=== PATIENT | female | born 1990 | race Caucasian/White ===

== ENCOUNTER 2023-04-05 15:14 | Outpatient (CLI) | payer BC, SELFPAY ==
[2023-04-05 16:10] LABS: Influenza A QL RT-PCR Negative (Negative); Influenza B QL RT-PCR Negative (Negative); RSV RNA, RT-PCR Negative (Negative); SARS-CoV-2 RNA PCR Negative (Negative)
== END 2023-04-05 15:15 | disposition home or self-care (01) ==
LOC: ANHLAB 15:16
PROVIDERS: PCP Family Medicine; Visit Provider Family Medicine
DX: N39.0 Urinary tract infection, site not specified (principal)
CPT/HCPCS: 87637

== ENCOUNTER 2023-05-13 11:30 | Outpatient (CLI) | payer BC, SELFPAY ==
--- NOTE | 2023-05-13 11:40 | ECG_ITS ---
Measurements Intervals [place] Rate: 89 P: 54 MS: 188 QRS: 33 QRSD: 93 T: 52 QT: 371 QTc: 453 Interpretive Statements SINUS RHYTHM NO PREVIOUS ECG AVAILABLE FOR COMPARISON Electronically Signed On 05-13-2023 14:32:14 CDT by Steve Haley M.D.
== END 2023-05-13 11:31 | disposition home or self-care (01) ==
LOC: ANHCARD 11:32
PROVIDERS: PCP Family Medicine; Visit Provider Physician Assistant
DX: E11.9 Type 2 diabetes mellitus without complications (principal); E03.9 Hypothyroidism, unspecified
CPT/HCPCS: 93005

== ENCOUNTER 2024-04-28 13:30 | Emergency (ER) | payer BC, SELFPAY ==
[2024-04-28 13:57] VITALS: BP 137/84; PULSE 96; RESP 16; TEMP 37.7; O2SAT 98
[2024-04-28 13:58] VITALS: BP 137/84; PULSE 96; RESP 16; TEMP 37.7; O2SAT 98
--- NOTE | 2024-04-28 14:00 | ED.URI ---
HPI - URI/Sore Throat General Chief Complaint: Upper Respiratory Infection Stated Complaint: Sore Throat Time Seen by Provider: 04/28/24 14:00 Source: patient, RN notes reviewed and old records reviewed Mode of arrival: ambulatory Limitations: no limitations History of Present Illness HPI Narrative: 33-year-old female presents to the [facility] with complaints of a sore throat. Patient reports on Tuesday or Tuesday started with some allergy symptoms. Yesterday started with a sore throat, laryngitis Related Data Home Medications Medication Instructions Recorded Confirmed omega-3 fatty acids 1,000 mg 1,000 mg PO DAILY 07/28/20 04/28/24 capsule (Fish Oil Concentrate) vitamin B complex (B 1 tablet PO DAILY 07/28/20 04/28/24 Complex-Vitamin B12 tablet) cetirizine 10 mg tablet (Zyrtec) 10 mg PO DAILY 12/29/22 04/28/24 fluticasone propionate 50 1 spray intranasal DAILY 12/29/22 04/28/24 mcg/actuation nasal spray,suspension (Flonase Allergy Relief) Allergies Allergy/AdvReac Type Severity Reaction Status Date / Time lactose intolerant Allergy Mild Stomach Uncoded 04/28/24 13:57 pain Review of Systems Review of Systems: All systems reviewed & are unremarkable except as noted in HPI and below Constitutional: Constitutional: Reports no additional constitutional complaints Eyes: Eyes: Reports no additional eye complaints ENT: Reports as per HPI and Reports sore throat Cardiovascular: Cardiovascular: Reports no additional cardiovascular complaints, Denies chest pain and Denies dyspnea Respiratory: Respiratory: Reports no additional respiratory complaints, Denies chest congestion, Denies cough and Denies dyspnea Gastrointestinal: Gastrointestinal: Reports no additional gastrointestinal complaints, Denies abdominal pain, Denies nausea and Denies vomiting Musculoskeletal: Musculoskeletal: Reports no additional musculoskeletal complaints Integumentary/Breasts: Skin/Breast: Reports system reviewed and no additional complaints, except as docu Neurologic: Reports system reviewed and no additional complaints, except as documented Psychiatric: Psychiatric: Reports no additional psychiatric complaints Allergic/Immunologic: Allergic/Immunologic: Reports no additional allergic/immunologic complaints PMFSH Past Medical History Medical History Anemia Depression Diabetes HLD (hyperlipidemia) Hypothyroidism PCOS (polycystic ovarian syndrome) Varicella Surgical History Surgical History [place] teeth removed (~2008) Family History Family History Other Asthma Cerebrovascular accident Diabetes mellitus Social History Social History Smoking status: Never smoker Second hand tobacco smoke exposure: No Alcohol intake: current Substance use: never Substance use type: does not use Lack of Transportation: No Lack of Food: Never True Current Housing: I Have Housing Concerned About Future Housing: No Difficulty Paying Gas/Electric Bills: No Difficulty Paying for Meds: No Currently Unemployed: No Difficulty w/ Childcare or Family Care: No Living arrangements: with family Spiritual care concerns: No Agree to blood products: Yes Comments At the time of my signature, I reviewed and agree with the nursing past medical, surgical, social, and family history. There is no relevant family history pertinent to the patient complaint. Exam Const: General: cooperative, healthy appearing, comfortable, no acute distress, well developed, alert and well nourished Nutritional Appearance: well nourished Orientation/consciousness: patient oriented x3 Limitations: no limitations HENMT: Head: normal to inspection Ears: hearing grossly normal bilaterally, external ears norm
[2024-04-28 14:25] LABS: EDCOVIDSCREEN Negative (Negative); EDINFLUASCREEN Negative (Negative); EDINFLUBSCREEN Negative (Negative); EDSTREPNEGPOS1 Negative (Negative)
== END 2024-04-28 14:31 | disposition home or self-care (01) ==
PROVIDERS: Emergency Provider Nurse Practitioner; PCP Family Medicine
DX: J04.0 Acute laryngitis (principal); R09.82 Postnasal drip; J02.9 Acute pharyngitis, unspecified; Z20.822 Contact with and (suspected) exposure to COVID-19; E11.9 Type 2 diabetes mellitus without complications; E78.5 Hyperlipidemia, unspecified; E03.9 Hypothyroidism, unspecified; E28.2 Polycystic ovarian syndrome
CPT/HCPCS: 87081; 87426; 87804; 87880; 99213; G0463

== ENCOUNTER 2024-05-23 12:33 | Emergency (ER) | payer BC, SELFPAY ==
[2024-05-23 12:41] VITALS: BP 126/75; PULSE 104; RESP 20; TEMP 37.1; O2SAT 100
--- NOTE | 2024-05-23 12:41 | ED.URI ---
HPI - URI/Sore Throat General Chief Complaint: Upper Respiratory Infection Stated Complaint: Nausea/Sore Throat Time Seen by Provider: 05/23/24 12:41 Source: patient, RN notes reviewed and old records reviewed Mode of arrival: ambulatory Limitations: no limitations History of Present Illness HPI Narrative: Patient presents with complaints of sore throat and nausea. Symptoms have been present for 2 days. She denies any fever, chills, sweats. No drooling or stridor noted. She does report some postnasal drainage. She is in no distress at this time. She has been taking Tylenol intermittently with good results Related Data Home Medications Medication Instructions Recorded Confirmed omega-3 fatty acids 1,000 mg 1,000 mg PO DAILY 07/28/20 05/23/24 capsule (Fish Oil Concentrate) cetirizine 10 mg tablet (Zyrtec) 10 mg PO DAILY 12/29/22 05/23/24 fluticasone propionate 50 1 spray intranasal DAILY 12/29/22 05/23/24 mcg/actuation nasal spray,suspension (Flonase Allergy Relief) Allergies Allergy/AdvReac Type Severity Reaction Status Date / Time lactose intolerant Allergy Mild Stomach Uncoded 05/23/24 12:35 pain Review of Systems Review of Systems: All systems reviewed & are unremarkable except as noted in HPI and below Constitutional: Constitutional: Reports as per HPI, Reports no additional constitutional complaints and Denies fever(s) ENT: Reports system reviewed and no additional complaints, except as documented, Reports as per HPI, Reports nasal discharge and Reports sore throat Cardiovascular: Cardiovascular: Reports no additional cardiovascular complaints Respiratory: Respiratory: Reports no additional respiratory complaints Gastrointestinal: Gastrointestinal: Reports no additional gastrointestinal complaints, Reports nausea and Denies vomiting [facility] Past Medical History Medical History Anemia Depression Diabetes HLD (hyperlipidemia) Hypothyroidism PCOS (polycystic ovarian syndrome) Varicella Surgical History Surgical History [place] teeth removed (~2008) Family History Family History Other Asthma Cerebrovascular accident Diabetes mellitus Social History Social History Smoking status: Never smoker Second hand tobacco smoke exposure: No Alcohol intake: current Substance use: never Substance use type: does not use Lack of Transportation: No Lack of Food: Never True Current Housing: I Have Housing Concerned About Future Housing: No Difficulty Paying Gas/Electric Bills: No Difficulty Paying for Meds: No Currently Unemployed: No Difficulty w/ Childcare or Family Care: No Living arrangements: with family Spiritual care concerns: No Agree to blood products: Yes Comments At the time of my signature, I reviewed and agree with the nursing past medical, surgical, social, and family history. There is no relevant family history pertinent to the patient complaint. Exam Const: General: cooperative, no acute distress, alert and awake Orientation/consciousness: oriented to person, oriented to place and oriented to time HENMT: Head: normal to inspection Ears: TM's normal bilaterally Mouth: Yes moist mucous membranes Throat: posterior oropharynx abnormal erythema and postnasal drainage Resp: Effort & Inspection: normal respiratory effort and able to speak in complete sentences Auscultation: clear to auscultation bilaterally, no crackles, no rales, no rhonchi and no wheezes Cardio: Palpation: normal PMI Rate: regular rate Rhythm: regular rhythm Heart sounds: S1 normal heart sound present and S2 normal heart sound present Neuro: General: oriented to person, oriented to place and oriented to time Cranial nerves: Yes CN's II-XII intact bilat
[2024-05-23 12:58] LABS: EDSTREPNEGPOS1 Negative (Negative)
== END 2024-05-23 13:05 | disposition home or self-care (01) ==
PROVIDERS: Emergency Provider Nurse Practitioner Family; PCP Family Medicine
DX: J06.9 Acute upper respiratory infection, unspecified (principal); E11.9 Type 2 diabetes mellitus without complications; E78.5 Hyperlipidemia, unspecified; E03.9 Hypothyroidism, unspecified; E28.2 Polycystic ovarian syndrome
CPT/HCPCS: 87081; 87880; 99213; G0463

== ENCOUNTER 2025-06-03 08:54 | Outpatient (CLI) | payer BC, SELFPAY ==
--- NOTE | ~2025-06-03 | US_ITS ---
ULTRASOUND ABDOMEN LIMITED (RIGHT UPPER QUADRANT) Clinical History: R74.01 - Elevation of levels of liver transaminase levels Comparison: None Technique: Right upper quadrant sonography Findings: Liver: Enlarged. Echogenic. No intrahepatic biliary ductal dilatation. Normal hepatopedal flow main portal vein. Common Duct: Normal caliber. 4 mm. Gallbladder: No stones. No wall thickening. No pericholecystic fluid. Pancreas: Visualized portions unremarkable. IMPRESSION: 1. No acute findings. 2. Hepatomegaly, with steatosis and/or hepatocellular disease. Reviewed, dictated and finalized at location R.
== END 2025-06-03 08:55 | disposition home or self-care (01) ==
LOC: MICIMG 08:55
PROVIDERS: PCP Student in an Organized Health Care Education/Training Program; Visit Provider Family Medicine
DX: R74.01 Elevation of levels of liver transaminase levels (principal); R16.0 Hepatomegaly, not elsewhere classified
CPT/HCPCS: 76705

== ENCOUNTER 2025-06-27 14:56 | Outpatient (CLI) | payer BC, SELFPAY ==
--- NOTE | 2025-06-27 15:09 | ECHO_ITS ---
Patient Info Name: Hanh De Jesus Age: 34 years : 1990 Gender: Female Ht: 68 in Wt: 245 lbs BSA: 2.36 m2 HR: 81 bpm BP: 133 / 90 mmHg Technical Quality: Good Exam Date: 06/27/2025 3:12 PM Patient Status: O Admit Date: 06/27/2025 Exam Type: CA echo dop color flow Complete two-dimensional, color flow and Doppler transthoracic echocardiogram is performed. Ekg Monitor: Shar Holguin III Attending Provider: Susan Bueno Summary 1. Complete two-dimensional, color flow and Doppler transthoracic echocardiogram is performed. 2. Left ventricular chamber dimension is normal. 3. Left ventricular systolic function is normal, estimated at 60-65. 4. The left ventricular diastolic function is normal. 5. E/e' 7 is not elevated. 6. There is trace tricuspid valve regurgitation. 7. No pulmonary hypertension, estimated pulmonary arterial systolic pressure is 21 mmHg. Left Ventricle E/e' 7 is not elevated. Left ventricular chamber dimension is normal. Left ventricular systolic function is normal, estimated at 60-65. The left ventricular diastolic function is normal. Right Ventricle Right ventricular chamber dimension is normal. Right ventricular systolic function is normal. Left Atria Left atrial chamber dimension is normal. Right Atria Right atrial chamber dimension is normal. Aortic Valve The aortic valve is probable trileaflet. There is no aortic valve stenosis. There is trace aortic valve regurgitation. Pulmonic Valve There is no pulmonic regurgitation. Mitral Valve There is no mitral valve stenosis. There is no mitral valve regurgitation. Tricuspid Valve There is trace tricuspid valve regurgitation. No pulmonary hypertension, estimated pulmonary arterial systolic pressure is 21 mmHg. Pericardium/Pleural There is no pericardial effusion. Inferior Vena Cava Normal inferior vena cava with >50% collapse upon inspiration consistent with normal right atrial pressure, 5 mmHg. Aorta The aortic root size at the sinus of Valsalva is normal. Left Ventricular Outflow Tract Name Value Normal LVOT 2D LVOT Diameter 2.3 cm LVOT Doppler LVOT Peak Velocity 138 cm/s LVOT Peak Gradient 8 mmHg LVOT Mean Gradient 4 mmHg LVOT VTI 24 cm LVOT VTI/AV VTI Ratio 0.8 LVOT Stroke Volume 96 ml LVOT CO 8.8 l/min LVOT CI 3.7 l/min/m2 Pulmonic Valve Name Value Normal PV Doppler PV Peak Velocity 124 cm/s PV Peak Gradient 6 mmHg PV Mean Gradient 4 mmHg Mitral Valve Name Value Normal MV Doppler MV Peak Gradient 4 mmHg MV Mean Gradient 2 mmHg MV Area (Cont Eq VTI) 4.4 cm2 MV Diastolic Function MV E Peak Velocity 103 cm/s MV A Peak Velocity 64 cm/s MV E/A 1.6 MV Decel Time (PW) 212 ms MV Annular TDI MV E/e' (Septal) 8.2 MV E/e' (Lateral) 7.0 MV E/e' (Average) 7.6 Tricuspid Valve Name Value Normal TV Regurgitation Doppler TR Peak Velocity 200 cm/s TR Peak Gradient 16 mmHg Estimated PAP/RSVP RA Pressure 5 mmHg <=5 PA Systolic Pressure 21 mmHg <36 RV Systolic Pressure 21 mmHg <36 TV Annular TDI TV Lateral Millie s' Velocity 12.8 cm/s >=9.5 Aortic Valve Name Value Normal AV Doppler AV Peak Velocity 164 cm/s AV Peak Gradient 11 mmHg AV Mean Gradient 6 mmHg AV VTI 29 cm AV Area (Cont Eq VTI) 3.3 cm2 >=3.0 AV Area (Cont Eq Abner) 3.4 cm2 AV DI (Abner) 0.84 AV Regurgitation 2D LVOT Area 4.0 cm2 Ventricles Name Value Normal LV Dimensions 2D/MM IVS Diastolic Thickness (2D) 0.8 cm 0.6-1.0 LVID Diastole (2D) 4.7 cm 3.8-5.2 LVIW Diastolic Thickness (2D) 0.9 cm 0.6-0.9 LVID Systole (2D) 3.2 cm 2.2-3.5 LVOT Diameter 2.3 cm LV Mass (2D Cubed) 128.63 g 67.00-162.00 LV Mass Index (2D Cubed) 55 g/m2 43-95 Relative Wall Thickness (2D) 0.36 <=0.42 LV Fractional Shortening/Ejection Fraction 2D/MM LV Fractional Shortening (2D) 33 % 27-45 LV EF (2D Teichholz) 61 % LV Diastolic Volume (4C MOD) 82 ml LV EF (4C MOD) 63 % LV Diastolic Volume (2C MOD) 85 ml LV EF (2C MOD) 62 % LV Diastolic Volume (BP MOD) 86 ml 46-106 LV Diastolic Volume Index (BP MOD) 37 ml/m2 29-61 LV Systolic Volume (BP MOD) 34 ml 14-42 LV Systolic Volume Index (BP MOD) 14 ml/m2 8-24 LV EF (BP MOD) 61 % 54-74 LV Diastolic Length (4C) 8.4 cm LV Systolic Length (4C) 6.3 cm LV Stroke Volume (4C MOD) 52 ml Atria Name Value Normal LA Dimensions LA Volume (4C A-L) 45 ml LA Volume (BP A-L) 47 ml RA Dimensions RA Systolic Major [place] Length (4C) 4.9 cm 2.2-2.8 RA Area (4C) 17.6 cm2 <=18.0 Report Signatures
--- OUTSIDE RECORDS SUMMARY | 2025-06-27 17:49 | XMS_ITS | Data Portability ---
Author Organization [facility], [place] Address [address] [place] [address] Care Team Providers Care Supervising Chef Name Role Phone SANJUANITA OLIVEROS Primary Care Provider [phone] Assessment Encounter Date Assessment Date Assessment LastModified by Organization Details LastModified Time 03/10/2020 03/10/2020 Annual gynecological exam performed. Patient will come back in a year unless there are new symptoms. [email or web address] Not available 03/10/2020 16:10:38 03/12/2021 03/12/2021 Annual gynecological exam performed. Patient will come back in a year unless there are new symptoms. Not available 03/12/2021 11:30:23 Plan of Treatment Reminders Order Date Submit Date Provider Last Modified By Organization Details Last Modified Time Details Appointments None recorded. Lab None recorded. Referral neurologist referral - Please call the patient to schedule an appt. If you have any questions, please call Sanjuanita at [phone]. Thank you. 2020 021 [email or web address] Neurology Dept [facility] (New Referrals), [address], [place], [address], 09:58:39 infertility reproductiv e endocrinolo gy referral 2019 020 JEAN Joshi, [address] [address], [place], [address], 05:04:05 Procedures None recorded. Surgeries None recorded. Imaging None recorded. Medication Orders None recorded. Patient TargetsNo targets recorded. Patient Instructions Encounter Date Encounter Id Patient Instructions Last Modified By Organization Details Last Modified Time 03/10/2020 [id number] [email or web address] Not available 17:02:01 Reason for Referral Infertility Reproductive End ocrinology Referral for Irregular periods Irregular periods/infertility work up Referring Physician: Veronique Chaudhari NUMERICAL ANALYSIS GROUP MANAGER, Encounter Date: 03/10/2020 Neurologist Referral for Ronaldo neri with aura Please call the patient to schedule an appt. If you have any questions, please call Sanjuanita at [phone]. Thank you. Referring Physician: Veronique Chaudhari NUMERICAL ANALYSIS GROUP MANAGER, Encounter Date: 03/12/2021 Results Created Date Observation Date Name Description Value Unit Range Abnormal Flag Note LastModifiedBy Organization Detail LastModifiedTime 03/10/20 20 03/12/2020 pap, LB Pap test thin prep Negati ve for Intrae pithel ial Lesion or Malign marcelina normal ACCES ELADIA #: [id number] Sourc e: Cervi mark/E ndoce rvica l LMP: 2019 Date Taken : 03/10 Speci men Type: ThinP rep Vial Date Repor dagoberto: Clini mrak Data: Cytot ech: Katarina Ko , CT( CP) Date Repor dagoberto: Speci men Adequ acy: Satis facto ry for evalu ation Endoc ervic al/tr ansfo rmati on zone compo nent prese nt Gener al Categ oriza tion: NEGAT ANKIT FOR INTRA EPITH ELIAL LESIO N OR MALIG HARIS This speci men has been candido zed by the ThinP rep Imagi ng Syste m, an inter activ e compu ter syste m which bethany ts the lab in the [facility] joni of ThinP rep Pap Test slide s. Follo wing imagi ng, the slide was revie wed by a Cytot echno logis t and/o r Patho logis t. D N A A S S A Y S R E P O R T TEST NAME RESUL TS ----- ---- ----- -- HPV High Risk Scree n (TMA) ThinP rep Vial The human papil lomav irus (HPV) High Risk Scree n is an FDA-a pprov ed in-vi tro ampli fied nucle ic acid test for the quali tativ e detec tion of E6/E7 viral mRNA. Resul ts shoul d be corre lated with patie nt prese ntati on, histo ry, cervi mark cytol ogy and other clini mark and labor atory findi ngs. See https ://GoodClic/s ites/ defau lt/fi les 018-0 AW- 62358 _002_ 01.pd f for furth er infor matio n. Test perfo rmed by [facility], d/b/[facility], [address], [place] [address] , Hortensia Colvin ra, , Labor atory Direc tor. HPV High Risk *HPV NOT DETEC DAGOBERTO (TYPE S 16, 18, 31, 33, 35, 39, 45, 51, 52, 56, 58, 59, 66, 68) *HPV: The human papil lomav irus (HPV) High Risk Scree n is an FDA-a pprov ed in-vi tro ampli fied nucle ic acid test for the quali tativ e detec tion of E6/E7 viral mRNA. Resul ts shoul d be corre lated with patie nt prese ntati on, histo ry, cervi mark cytol ogy and other clini mark and labor atory findi ngs. See https ://GoodClic/s ites/ defau lt/fi -0 - 80449 _002_ 01.pd f for furth er infor matio n. Test perfo rmed by [facility], d/b/a [facility], [address], [place] [address] , Hortensia Colvin ra, , Labor atory Direc tor. End of Repor t Techn ical servi sonam provi ded by [facility], d/b/a [facility], [address] [place] [address] Michael Wiseman MD, [facility]. Case revie wed and diagn osis rende red at [facility] iated Patho logis [facility], d/b/a [facility], [address] [place] [address] Michael Wiseman MD, [facility]. CONFI DENTI AL Not Available [facility] ([facility]) [address], [place], [address], 03/12/2020 14:35:27 03/10/20 20 03/11/2020 HPV DNA, high- risk HPV high risk NOT DETECT ED normal Not Available [facility] ([facility]) [address], [place], [address], 03/12/2020 14:35:27 Result Notes None recorded. Problems Name Problem SNOMED Code Status Onset Date Resolution Date Notes Provider Name and Address Organization Details Recorded Time Dysfuncti onal uterine bleeding Active 2012 Other disorders of menstruati on and other abnormal bleeding from female genital tract;Sharan rded Elsewhere: No Locatio n: [facility] rce: EHR Chroni c: N Practice ID: 0001 Billa ble Time: 08:30:00 AM Not Available [facility] 0 18:38:32 Specializ ed medical examinati on Active 2012 Gynecologi mark Examinatio n;Recorded Elsewhere: No Locatio n: [facility] Anastasia rce: EHR Chroni c: N Practice ID: 0001 Billa ble Time: 05:00:00 PM Not Available [facility] 0 18:38:31 Education Active 2012 Other general counseling and advice on contracept ankit management ;Recorded Elsewhere: No Locatio n: [facility] rce: EHR Chroni c: N Practice ID: 0001 Billa ble Time: 09:30:00 AM Not Available [facility] 0 18:38:32 Screening for malignant neoplasm of cervix Active 2013 Screening for malignant neoplasms of the cervix;Rec orded Elsewhere: No Locatio n: [facility] rce: EHR Chroni c: N Practice ID: 0001 Billa ble Time: 09:30:00 AM Not Available [facility] 0 18:38:32 Adult health examinati on Active 2013 ROUTINE MEDICAL EXAM;Recor ded Elsewhere: No Locatio n: [facility] rce: EHR Chroni c: N Practice ID: 0001 Billa ble Time: 09:30:00 AM Not Available [facility] 0 18:38:[address] Concept Active 2014 Encounter for routine nurse obgyn exam w/o abnormal finding;Re corded Elsewhere: No Locatio n: [facility] rce: EHR Chroni c: N Practice ID: 0001 Billa ble Time: 04:15:00 PM Not Available [facility] 0 18:38:32 test negative [id number] Active 2014 Encounter for test, result negative;R ecorded Elsewhere: No Locatio n: [facility] rce: EHR Chroni c: N Practice ID: 0001 Billa ble Time: 04:15:00 PM Not Available [facility] 0 18:38:[address] Concept Active 2018 Encntr for general adult medical exam w/o abnormal findings;R ecorded Elsewhere: No Locatio n: [facility] rce: EHR Chroni c: N Practice ID: 0001 Billa ble Time: 03:00:00 PM Not Available [facility] 0 18:38:32 Notes:DM2 and thyroid Problem Notes None recorded. Procedures Surgical History Date Name Laterality Status Provider Name and Address Organization Details Recorded Time 0 Date of Last Pap Smear completed Janey Romano [facility] 03/10/2020 18:06:27 9 extraction of wisdom tooth completed Janey Romano [facility] 03/10/2020 18:45:24 Imaging Results None recorded. Procedure Notes None recorded. Medical Equipment None Reported. Allergies Allergen ID Allergen Name Allergen Category Reaction Reaction Severity Criticality Documentation Date Start Date Code Code System Note Provider Name and Address Organization Details Recorded Time 1556 lactose food,medi cation Not available Not available Not available 03/10/[address] [facility], [facility] 0 16:12:02 Medications Name Sig Start Date Stop Date Status Note LastModified by Organization Details LastModified Time Prometriu m 200 mg capsule take 1 capsule (200MG) by oral route every bedtime for 10 days in the evening sequenti ally per 28 day cycle 02/04 completed Prescrib ed Elsewher e: No Locat ion: [facility] odify By: nikky dickerson DateTime : 01/27/20 13 08:30:00 AM Not Available Not Available Not Available medroxypr ogesteron e 10 mg tablet TK 1 T PO QD 03/12 completed Not Available Not Available Not Available azithromy frank 250 mg tablet 03/10 completed Not Available Not Available Not Available metformin 850 mg tablet take 1 tablet by oral route 2 times every day with morning and evening meals 03/12 completed Prescrib ed Elsewher e: Yes Loca tion: [facility] odify By: [email or web address] trick En counter DateTime : 06/08/20 13 09:30:00 AM Not Available Not Available Not Available levothyro xine 100 mcg tablet TAKE 1 TABLET BY MOUTH EVERY DAY active Not Available Not Available No t Available Vitamin D2 1,250 mcg (50,000 unit) capsule take 1 capsule (45321MC ITS) by oral route every week 06/08 completed Prescrib ed Elsewher e: No Locat ion: [facility] odify By: [email or web address] trick En counter DateTime : 02/27/20 13 11:46:24 AM Not Available Not Available Not Available ketoconaz ole 2 % topical cream 03/10 completed Not Available Not Available Not Available metformin ER 500 mg tablet,ex tended release 24 hr TAKE 2 TABLETS BY MOUTH DAILY WITH THE EVENING MEAL active Not Available Not Available No t Available insulin aspart (U-100) 100 unit/mL (3 mL) subcutane ous pen active Not Available Not Available Not Available Tri-Sprin joanne (28) 0.18 mg(7)/0.2 15 mg(7)/0.2 5 mg(7)-0.0 35 mg tablet take 1 tablet by oral route every day 08/17 completed Prescrib ed Elsewher e: No Locat ion: [facility] odify By: ponce dickerson DateTime : 08/17/19 17 11:00:00 AM Not Available Not Available Not Available BD Ultra-Fin e Mini Pen Needle 31 gauge x 3/16 USE THREE TIMES DAILY active Not Available Not Available No t Available Sinus and Allergy (phenylep hrine) 4 mg-10 mg tablet active Prescrib ed Elsewher e: Yes Loca tion: [facility] odify By: [email or web address] trick En counter DateTime : 01/27/20 13 08:30:00 AM Not Available Not Available Not Available Tirosint 100 mcg capsule take 1 capsule by oral route every day 03/12 completed Prescrib ed Elsewher e: Yes Loca tion: [facility] odify By: [email or web address] trick En counter DateTime : 06/08/20 13 09:30:00 AM Not Available Not Available Not Available Contour Next Test Strips USE 1 STRIP FIVE TIMES DAILY active Not Available Not Available No t Available Levemir FlexTouch U-100 Insulin 100 unit/mL (3 mL) subcutane ous pen INJECT 50 UNITS UNDER THE SKIN IN THE MORNING AND EVENING. INCREASE UP TO 120 UNITS ONLY INSTRUCT ED active Not Available Not Available No t Available BD Feli 2nd Gen Pen Needle 32 gauge x 5/32 USE 1 PEN NEEDLE TWICE DAILY. active Not Available Not Available No t Available Vitals Date Recorded Body height Body mass index (BMI) Body weight Systolic And Diastolic Provider Name and Address Organization Details Last Updated DateTime 03/10/2020 171.45 cm 41.5 kg/m2 186670.35 g 123/84 mm[Hg] Janey Romano [place] - [facility] 03/10/2020 16:11:50 Date Recorded Body height Body mass index (BMI) Body weight Systolic And Diastolic Provider Name and Address Organization Details Last Updated DateTime 03/12/2021 170.82 cm 39 kg/m2 348110.68 g 123/79 mm[Hg] Sintia Soto [facility] 03/12/2021 11:31:41 Social History Question Answer Notes LastModified by Organizat ion Details LastModified Time Tobacco Smoking Status Never Smoker Janey Rosalina delgadillo, [facility] 03/10/2020 18:44:44 What Type Of Diet Are You Following? REGULAR Information not available 03/12/2021 Which Illicit Or Recreational Drugs Have You Used? None [email or web address] Information not available 03/10/2020 What Was The Date Of Your Most Recent Tobacco Screening? 03/10/2020 [email or web address] Information not available 03/10/2020 How Much Tobacco Do You Smoke? No [email or web address] Information not available 03/10/2020 Sex: Unknown Functional Status Question Answer Note LastModified by Organizat ion Details LastModified Time What is your level of alcohol consumption? Occasional [email or web address] Information not available 03/10/2020 Do you or have you ever used smokeless tobacco? Never used smokeless tobacco [email or web address] Information not available 03/10/2020 Do you or have you ever used e-cigarettes or vape? Never used electronic cigarettes [email or web address] Information not available 03/10/2020 What is your exercise level? Occasional [email or web address] Information not available 03/10/2020 Mental Status None recorded. Family History Relationship Description Onset Age of this Age Resolved Age Notes LastModified by Organization Details LastModified Time Sister Asthma [email or web address] Not available 03/10/2020 18:44:35 Maternal Aunt Malignant neoplasm of breast [email or web address] Not available 2020 11:34:02 Notes:mgm possible breast ca ncer Medical History Condition Response Diabetes Y Thyroid Problems Y Gynecological History Statement/Question Response Date of LMP 03/03/2020 Sexually Active? Y Menses Monthly N HPV Vaccine N Date of Last Pap Smear 03/10/2020 Sexual Problems? Y Current Control Method None 11 LMP Approximate Obstetrics History GPAL:G 0 P 0 0 0 0 Past Encounters Encounter ID Performer Location Encounter Start Date Encounter Closed Date Diagnosis/Indication Diagnosis SNOMED-CT Code Diagnosis ICD10 Code Diagnosis IMO Codes Diagnosis Note [id number] Veronique Chaudhari [facility] [address],[place] [address] 03/10/2020 15:48:00 03/10/2020 17:19:42 Gynecologic examination [id number] Z01.419 Take Calcium with Vitamin D 1200mg daily if not receiving in daily diet. It is strongly advised to have an annual flu shot and up can obtain at most pharmacies . If you have not had a TDap shot in the last 10 years you should obtain one as well. Discussed with patient & provided with informatio n regarding Gardisil vaccine to prevent the 4 strains for HPV that cause cervical cancer if under age 26. Encourage safe sexual practices, to use condoms and limit partners if not already in a monogamous relationsh ip. Do monthly self breast exams. Have mammogram yearly or every other year depending on family history. BRCA testing is now available for patients with strong genetic history of female cancer. If interested contact the office. Engage in daily exercise of low impact aerobic exercise 45-60 minutes 4-5 times weekly. Avoid tobacco and illicit drugs as well as using moderation with alcohol intake less than 1-2 8 oz beverages daily. This lifestyle behavior pattern will lead to less health conditions and longer life span. If BMI greater than 25 weight watchers or dietary consult advised. Patient received above instructio ns, and questions have been answered. If you have any questions please call or respond to this email. Patient was made aware of the patient portal and may obtain a paper copy of today's plan if desired. Irregular periods [id number] 07 N92.6 N97.9 Refer to HETALKarissa Hui Trying to conceive 04/2019. Hx of irregular menses q3-6mos with work up in past ??PCOS/ano vulation. Regular on OCP. On metformin now Hx of hypothyroi dism/DM2. [id number] Veronique Chaudhari [facility] [address],[facility] [place] [address] 03/12/2021 10:46:49 03/12/2021 12:49:50 Gynecologic examination 50618481 Z01.419 Take Calcium with Vitamin D 1200mg daily if not receiving in daily diet. It is strongly advised to have an annual flu shot and up can obtain at most pharmacies . If you have not had a TDap shot in the last 10 years you should obtain one as well. Discussed with patient & provided with informatio n regarding Gardisil vaccine to prevent the 4 strains for HPV that cause cervical cancer if under age 26. Encourage safe sexual practices, to use condoms and limit partners if not already in a monogamous relationsh ip. Do monthly self breast exams. Have mammogram yearly or every other year depending on family history. BRCA testing is now available for patients with strong genetic history of female cancer. If interested contact the office. Engage in daily exercise of low impact aerobic exercise 45-60 minutes 4-5 times weekly. Avoid tobacco and illicit drugs as well as using moderation with alcohol intake less than 1-2 8 oz beverages daily. This lifestyle behavior pattern will lead to less health conditions and longer life span. If BMI greater than 25 weight watchers or dietary consult advised. Patient received above instructio ns, and questions have been answered. If you have any questions please call or respond to this email. Patient was made aware of the patient portal and may obtain a paper copy of today's plan if desired.Pa p/hpv hx wnlLast pap/hpv 2020 wnlSTD declinedTr claudio to achieve . Migraine with aura 43896 06 G43.109 Refer to neurologis t for more frequent Migraines which have been triggered by orgasms at least 1x a month in the last year.Ibupr ofen usually resolves it within 30mins to 1hr.Also having migraines with visual aura sx's outside of this event.Has never seen neurologis t prior to this before. 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 See's Dr. Adi FONG b/c she is wanting to get .H as an appt to go & see him in the next month to discuss lack of menses and again.UTP today is neg Informed patient that if she does not see Dr. Joshi in the next month needs to let us know; we will start her work up with labs/US to ensure lining is thin and complete provera challenge if needed.We want to avoid risks for precancers /cancers/h yperplasia etc. Health Concerns Section Related Observation LastModified by Organization Detai ls LastModified Time None Recorded Concern Status LastModified by Organization Details LastModified Time None Recorded Advance Directives Directive None Recorded Payers Insurance Date Sequence Insurance Name Policy Number Policy Portillo Covered Member ID Portillo Member ID Guarantor Name 03/15/2021 1 [employer] [id number] 5 Ronal De Jesus 48 Hanh De Jesus Notes Date Note Type Note Provider Name and Address Organization Details Recorded Time 0 text/html Annual GYNReported by PatientGenitourinary symptomsFor menstrual cycle, patient reportsnormal menses. For urinary symptoms, patient reportsno hematuriaandno incontinence. For vulva, patient reportsno genital lesion. For vagina, patient reportsnormal vaginal discharge.Breast symptomsFor breast, patient reportsno breast pain,no breast lump, andno nipple discharge.Endocrine symptomsFor sexual complaints, patient reportsno sexual complaints,no pain during intercourse, andnormal libido. For menopausal symptoms, patient reportsno menopausal symptomsandnormal vaginal lubrication.Psychological symptomsFor psychological symptoms, patient reportsno depression,no anxiety, andno pmdd.Preventative measuresFor preventive measures, patient reportsencourage self breast examination,encourage regular exercise,encourage no tobacco use, andencourage regular mammograms starting age 40. Veronique Chaudhari, [facility]- [address], [place], [address], [facility] 03/10/2020 17:05:59 1 text/html Annual GYNReported by PatientGenitourinary symptomsFor menstrual cycle, patient reportsirregular cycle intervals(hx of irregular cycles--oligomenorrhea.washburn ving menses q5-6moshas an appt with dr. adi laws for consult & help b/c wanting to achieve .). For urinary symptoms, patient reportsno hematuriaandno incontinence. For vulva, patient reportsno genital lesion. For vagina, patient reportsnormal vaginal discharge.Breast symptomsFor breast, patient reportsno breast pain,no breast lump, andno nipple discharge.ContraceptionFo r current contraception, patient reportsbirth control not practiced (trying to achieve ).Endocrine symptomsFor sexual complaints, patient reportsno sexual complaints,no pain during intercourse, andnormal libido. For menopausal symptoms, patient reportsno menopausal symptomsandnormal vaginal lubrication.Psychological symptomsFor psychological symptoms, patient reportsno depression,no anxiety, andno pmdd.Preventative measuresFor preventive measures, patient reportsencourage self breast examination,encourage regular exercise,encourage no tobacco use, andencourage regular mammograms starting age 40. Veronique Chaudhari, [facility]- [address], [place], [address], [place] - [facility] 03/12/2021 12:00:37 OBGyn Episode No OBEpisode recorded.
--- OUTSIDE RECORDS SUMMARY | 2025-06-27 17:49 | XMS_ITS | Clinical Summary ---
Author Organization [facility] Address [address] [place] [address] Care Team Providers Care Race And Sports Book Writer Name Role Phone Shreya Fay MD Primary Care Provider [phone] Source Comments [facility],non-owned Affiliates and Associated Physician Practices is amultiple site organization consisting of ambulatory clinics and hospital sitesin [place], [place], [place] and [place]. This disclosure is being madepursuant to the Care Everywhere program and may not contain all information available regarding this patient. Last updated 18.[facility] Allergies Active Allergy Reactions Criticality Noted Date Comments Lactose GI Discomfort 08/20/2020 Medications * Be aware that medications may not be up to date on this document. Alwaysverify current medications with the patient. levothyroxine (SYNTHROID) 100 MCG tablet Take 100 mcg by mouth daily before breakfast 0 Active Vit-Fe Fumarate-FA ( VITAMIN) 27-0.8 MG tablet Take 1 tablet by mouth once daily Active vitamin D3 (CHOLECALCIFERO L) 25 MCG (1000 UNITS) tablet 2/3 days Active B Complex Vitamins (B COMPLEX 1 PO) Take 1 tablet by mouth once daily Active [place]-3 Fatty Acids (FISH OIL) 1000 MG capsule Take 1,000 mg by mouth once daily Active Insulin Pen Needle (BD PEN NEEDLE MIKE U/F) 32G X 4 MM MISCIndications :Type 2 diabetes mellitus without complication, with long-term current use of insulin (HCC) Use 1 Each 2 times daily Please provide pen needles with same gauge and length on insurance preferred list. 100 Each 6 0 Active insulin aspart (NOVOLOG) pen Starting dose inject 5 units before meals. Increase up to 30 units per day only as instructed. 9 mL 6 1 Active insulin pen needle (B-D UF III MINI PEN NEEDLES) 31G X 5 MM needle 1 (one) Each by Injection route 3 times daily 100 Each 5 1 Active insulin detemir (LEVEMIR FLEXTOUCH) penIndications: Type 2 diabetes mellitus without complication, with long-term current use of insulin (HCC) INJECT 60 UNITS UNDER THE SKIN IN THE MORNING AND EVENING. INCREASE UP TO 150 UNITS ONLY INSTRUCTED 45 mL 3 1 Active DANIELLE CONTOUR NEXT TEST test strip USE FIVE TIMES DAILY DIRECTED, OFFICE APPOINTMENT NEEDED FOR ADDITIONAL REFILLS AFTER THIS 150 strip 3 1 Active letrozole (FEMARA) 2.5 MG tablet Take two tablets daily days 3-7 of your cycle 10 tablet 5 1 Active metFORMIN ER 24hr (GLUCOPHAGE XR) 500 MG tablet TAKE 1 TABLET BY MOUTH EVERY MORNING AND 2 TABLETS BY MOUTH EVERY EVENING 90 tablet 2 2 Active Active Problems Problem Noted Date Diagnosed Date Pre-conception counseling 05/23/2020 Hirsutism 04/21/2020 Irregular periods 04/21/2020 BMI 39.0-39.9,adult 04/21/2020 Overview (05/23/2020): Has lost 14 lb T2DM (type 2 diabetes mellitus) 04/21/2020 Overview (05/23/2020): Onset 2014 Hypothyroidism 04/21/2020 History of PCOS 04/21/2020 Elevated testosterone level in female 04/21/2020 Elevated liver enzymes H/O migraine with aura Overview (05/23/2020): Infrequent, visual aura Family History Medical History Relation Name Comments Other Father estranged , not sure of medical history Cancer - Breast Maternal Aunt Cancer - Breast Maternal Grandmother Diabetes - Type 2 Maternal Grandmother Diabetes - Type 2 Mother Relation Name Status Comments Father Alive Maternal Aunt Maternal Grandmother Mother Alive Social History Tobacco Use Types Packs/Day Years Used Date Smoking Tobacco: Never Smokeless Tobacco: Never Alcohol Use Standard Drinks/Week Comments Yes 0 (1 standard drink = 0.6 oz pur e alcohol) AUDIT-C Answer Date Recorded Q1: How often do you have a drink containing alc ohol? 2-4 times a month 04/21/2020 Average Number of Drinks Not on file 020 Frequency of Binge Drinking Not on file 04/08 Overall Financial Resource Strain (CARDIA) Answe r Date Recorded How hard is it for you to pa y for the very basics like food, housing, medical care, and heating? Not hard at all 08/20/2020 Hunger Vital Sign Answer Date Recorded Within the past 12 months, y ou worried that your food would run out before you got the money to buy more. Never true 08/20/19 21 Within the past 12 months, t he food you bought just didn't last and you didn't have money to get more. Never true 08/20/2020 PRAPARE - Transportation Answer Date Re corded In the past 12 months, has l ack of transportation kept you from medical appointments or from getting medications? No 08/08 In the past 12 months, has l ack of transportation kept you from meetings, work, or from getting things needed for daily living? No 08/20/2020 Education Answer Date Recorded What is the highest level of school you have completed or the highest degree you have received? 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 Not on file Not on f ile Last Filed Vital Signs Vital Sign Reading Time Taken Comments Blood Pressure 133/86 05/21/2021 1:50 PM CDT Pulse 84 05/21/2021 1:50 PM CDT Temperature 36.4 C (97.6 F) 05/21/2021 1:50 PM CDT Respiratory Rate - - Oxygen Saturation 98% 05/21/2021 1:50 PM CDT Inhaled Oxygen Concentration - - Weight 113.5 kg (250 lb 3.2 oz) 05/21/2021 1:50 PM CDT Height 172.7 cm (5' 8) 05/21/2021 1:50 PM CDT Body Mass Index 38.04 05/21/2021 1:50 PM CDT Plan of Treatment Health Maintenance Due Date Last Done Comments HIV SCREENING 2004 HEPATITIS C SCREENING 10/14/2007 DTAP/TDAP/TD VACCINES (1 - Tdap) 2008 HEPATITIS B VACCINE (1 of 3 - 19+ 3-dose series) 2008 HPV VACCINE (1 - 3-dose SCDM series) 2016 PAP with HPV 10/19/2019 DIABETES-FOOT EXAM WITH MONOFILAMENT 04/21/2020 DIABETES-HGB A1C 02/17/2021 08/20/2020, 05/20/2020 DIABETES-SERUM CREATININE 05/20/2021 05/20/2020 Cervical Cancer Screening 03/10/2023 PAP SMEAR 03/10/2023 03/10/2020 (Done Outside Per Patient) DEPRESSION SCREENING 08/08/2024 DIABETES - URINE PROTEIN SCREENING 08/08/2024 07/19/2020 COVID-19 VACCINE (3 - 2024-2 6 season) 2025 11/07/2020, 10/17/2020 INFLUENZA VACCINE (#1) 2025 ZOSTER VACCINE (1 of 2) 10/19/2039 HIB VACCINE Aged Out No longer eligi ble based on patient's age to complete this topic MENINGOCOCCAL (Group B) VACCINE SHARED DECISION-MAKING Aged Out No longer eligible based on patient's age to complete this topic MENINGOCOCCAL GROUPS A/C/Y/W VACCINE Aged Out No longer eligible based on patient's age to complete this topic PNEUMOCOCCAL VACCINE Aged Out No long er eligible based on patient's age to complete this topic Procedures Procedure Name Priority Date/Time Associated Diagnosis Comments HEMOGLOBIN A1C - POINT OF CARE (AMB) [facility] Routine 08/20/2020 Type 2 diabetes mellitus without complication, with long-term current use of insulin Pre-conception counseling MICROALB/CREAT RATIO URINE RANDOM PANEL 07/19/2020 12:11 PM SAFETY INSTRUCTOR COMPREHENSIVE METABOLIC PANEL Routine 05/20/2020 12:11 PM CDT Type 2 diabetes mellitus without complication, without long-term current use of insulin from Last 3 Months or Most Recently Relevant to Health Maintenance Results * HEMOGLOBIN A1C - POINT OF CARE (AMB) [facility] (08/20/2020) Hemoglobin A1c POCT 5.0 BLOOD SPECIMEN / Unknown 08/20/[address]/LD LAB - POINT OF CARE ORD ERABLES Final Result * MICROALB/CREAT RATIO URINE RANDOM PANEL (07/19/2020 12:11 PM SAFETY INSTRUCTOR) Creatinine Urine 128 20 - 275 mg/dL [facility] Microalbumin Urine 0.9 mg/dL [facility] Comment: Reference Range Not established Microalbumin/Creat inine Ratio 7 <30 mcg/mg creat [facility] Comment: The ADA defines abnormalities in albumin excretion as follows: Category Result (mcg/mg creatinine) Normal <30 Microalbuminuria 30-299 Clinical albuminuria > OR = 300 The ADA recommends that at least two of three specimens collected within a 3-6 month period be abnormal before considering a patient to be within a diagnostic category. REPORT COMMENT: SPLIT 05/20/2020 FROM [id number] Test Performed at: [facility] [id number] [place] [address] TIAN JACK DO,MPH 07/19/2020 12:1 1 PM SAFETY INSTRUCTOR 07/19/2020 12:12 PM SAFETY INSTRUCTOR us Lora Witt MD LAB - URINE CHEMISTRY ORDERABLES Final Result [facility] [id number] [place] [address] * (ABNORMAL) COMPREHENSIVE METABOLIC PANEL (05/20/2020 12:11 PM CDT) Glucose 111 65 - 139 mg/dL [facility] Comment: Non-fasting reference interval BUN 8 7 - 25 mg/dL [facility] Creatinine 0.61 0.50 - 1.10 mg/dL [facility] eGFR by MDRD 122 > OR = 60 mL/min/1. 73m2 [facility] eGFR by MDRD 141 > OR = 60 mL/min/1. 73m2 [facility] BUN/Creatinine Ratio NOT APPLICABLE 6 - 22 (calc) [facility] Sodium 137 135 - 146 mmol/L [facility] Potassium 5.1 3.5 - 5.3 mmol/L [facility] Chloride 102 98 - 110 mmol/L [facility] CO2 29 20 - 32 mmol/L [facility] Calcium 10.2 8.6 - 10.2 mg/dL [facility] Protein Total 7.7 6.1 - 8.1 g/dL [facility] Albumin 4.8 3.6 - 5.1 g/dL [facility] Globulin Total 2.9 1.9 - 3.7 g/dL (calc) [facility] Albumin/Globuli n Ratio 1.7 1.0 - 2.5 (calc) [facility] Bilirubin Total 0.7 0.2 - 1.2 mg/dL [facility] Alkaline Phosphatase 55 31 - 125 U/L [facility] AST 88(H) 10 - 30 U/L [facility] ALT 135(H) 6 - 29 U/L [facility] Comment: REPORT COMMENT: FASTING:NO PATIENT UNABLE TO VOID; ADVISED TO RETURN FOR COLLECTION. Test Performed at: [facility] [id number] [place] [address] TIAN JACK DO,MPH Blood BLOOD SPECIMEN / Unknown 05/20/2020 12:11 PM CDT 05/20/2020 12:12 PM CDT Lora Witt MD LAB - CHEMISTRY ORDERA BLE Final Result [facility] [id number] [place] [address] from Last 3 Months or Most Recently Relevant to Health Maintenance Insurance [facility] Care Teams Race And Sports Book Writer Relationship Specialty Start Date End Date Shreya Fay MD [address] [place] [address] PCP - General 04/18/20
--- OUTSIDE RECORDS SUMMARY | 2025-06-27 17:49 | XMS_ITS | Encounter Summary ---
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 Routed to Diabetes team to see if Ok to refill or needs appt. documented in this encounter Plan of Treatment Not on file documented as of this encounter Visit Diagnoses Not on filedocumented in this encounter Care Teams Instrumental Music Teacher Relationship Specialty Start Date End Date Shreya Fay MD [address] [place] [address] PCP - General 04/18/20 documented as of this encounter
== END 2025-06-27 14:57 | disposition home or self-care (01) ==
LOC: ANHCARD 14:57
PROVIDERS: PCP Student in an Organized Health Care Education/Training Program; Visit Provider Student in an Organized Health Care Education/Training Program
DX: R01.1 Cardiac murmur, unspecified (principal)
CPT/HCPCS: 93306; C8929